=== PATIENT | female | born 1995 | race Caucasian/White ===

== ENCOUNTER 2019-02-07 06:35 | Day surgery (SDC) | payer BC ==
[~2019-02-07 06:35] MED LIST: Acetaminophen TAB* 325 MG PO ONE; Buffered Lidocaine 1% SYRIN* 1 ML/SYRINGE INTRADERM ONE; Lactated Ringers 1000 ML Bag* 1,000 ML IV SCH
[2019-02-07] MEDS ORDERED: Acetaminophen TAB* 325 MG ONE (07:15)
[2019-02-07] MEDS ORDERED: Buffered Lidocaine 1% SYRIN* 1 ML/SYRINGE INTRADERM ONE (07:16)
[2019-02-07] MEDS ORDERED: Midazolam* 1 MG/ML 2 ML VIAL (2 MG) ONE (07:46)
[2019-02-07] MEDS ORDERED: Propofol* 10 MG/ML 20 ML BTL ONE (07:47)
[2019-02-07] MEDS ORDERED: fentaNYL* 50 MCG/ML 2 ML VIAL (100 MCG VIAL) ONE (07:47)
[2019-02-07] MEDS ORDERED: Lidocaine 2% PF * 5 ML VIAL ONE (07:47)
[2019-02-07] MEDS ORDERED: oxyCODONE TAB* 5 MG TAB PO PRN (08:05)
[2019-02-07] MEDS ORDERED: Naloxone* 0.4 MG/ML 1 ML VIAL IV PRN (08:05)
[2019-02-07] MEDS ORDERED: diPHENhydraMINE IV* 50 MG/ML 1 ml VIAL (BENADRYL) IV PRN (08:05)
[2019-02-07] MEDS ORDERED: PROCHLORPERAZINE INJ 5 MG/ML 2 ML VIAL IV PRN (08:05)
[2019-02-07] MEDS ORDERED: HYDROmorphone INJ1* 1 MG/ML SYRINGE IV PRN (08:05)
[2019-02-07] MEDS ORDERED: Bupivacaine 0.5%* 50 ML MDV VIAL ONE (08:09)
[2019-02-07] MEDS ORDERED: Lidocaine 1% INJ* 10 MG/ML 30 ML SDV ONE (08:09)
[2019-02-07] MEDS ORDERED: Bupivacaine 0.25% EPI 200,000* 30 ML SDV ONE (08:09)
[2019-02-07] MEDS ORDERED: Morphine 10 MG/ML VIAL (1 ml) ONE (08:48)
[2019-02-07] MEDS ORDERED: Ondansetron INJ* 2 MG/ML VIAL ONE (08:48)
[2019-02-07] MEDS ORDERED: Dexamethasone IV* 4 MG/ML 1 ML (4 MG) ONE (08:48)
[2019-02-07] MEDS ORDERED: Ketorolac INJ* 30 MG/ML 1 ML VIAL ONE (08:48)
--- NOTE | 2019-02-07 09:49 | BRIEFOPN ---
Brief Operative/Procedure Note - Operation Details Pre-Op Diagnosis: left breast lump Post-Op Diagnosis: same Procedures: excision left breast lump Surgeon(s)/Proceduralists: Peter Anesthesia: general Estimated Blood Loss: 3 cc Findings: large fibrous lump Specimen(s)/Culture(s) Description: left breast lump Complications: none
[2019-02-07 11:00] VITALS: BP 114/80
--- NOTE | 2019-02-07 15:07 | OP ---
CC: [facility]; Dr. Donato Rausch* OPERATIVE REPORT: DATE OF OPERATION: 02/07/19 - SDS DATE OF : 89 SURGEON: Vashti Green MD. PROJECT MANAGER/DESIGN MANAGER: There was no virtual office assistant for this case. ANESTHESIOLOGIST: Terrie Marte MD ANESTHESIA: General. PRE-OP DIAGNOSIS: Left breast lump. POST-OP DIAGNOSIS: Left breast lump. PROCEDURE: Excision of left breast lump. INDICATION: Ms. Bourgeois is a 23-year-old woman with a lump identified by palpation and confirmed by ultrasound, but unable to be determined based on imaging characteristics whether it would be a phyllodes tumor, but plans were made for excision. DESCRIPTION OF PROCEDURE: She was brought to the operating room and placed on the OR table in the supine position and given general anesthesia. The left breast was prepped and draped in the usual sterile fashion. After infiltrating with local anesthetic, a curvilinear incision was made over the lump and subcutaneous tissue was divided with electrocautery. Once the level of the lump was reached, it was grasped with an Allis clamp and elevated. Dissection was carried out further with blunt and sharp and electrocautery dissection to excise the mass from surrounding tissue. It was marked in the usual fashion and handed off as a specimen. Hemostasis was assured with electrocautery. Once this was adequate, clips were placed in the cavity to robe its extent and then additional local was instilled into the wound. Closure was accomplished with 3- 0 Vicryl in the subcutaneous layer and the skin was closed with 4-0 Prolene in a subcuticular fashion. Steri-Strips and a dry sterile dressing were applied. All sponge and instrument counts were correct. The patient tolerated the procedure well and was transferred to Recovery in stable condition. [id number]/[facility] #: [id number] [facility]
== END 2019-02-07 11:00 | disposition home or self-care (01) ==
LOC: OR 06:35
PROVIDERS: ATTEND Surgery
DX: D24.2 Benign neoplasm of left breast (principal)
CPT/HCPCS: 81025; 88307; A9270-GY; J1100; J1885; J2250; J2270; J2405; J2704; J3010; J3490